=== PATIENT | female | born 1945 | race Caucasian/White ===

== ENCOUNTER → 2017-01-17 | Outpatient (CLI) | payer MEDICARE ==
[~2017-01-17] MED LIST: ASPIRIN E.C. 8181 MG PO; BENICAR 20MG TA20 MG PO; CALCIUM600 MG PO; CARDI-OMEGA1000 MG PO; FOLIC ACID1 MG PO; MULTIPLE VITAMI1 CAP PO; NEXIUM PO; VITAMIN C BUFF500 MG PO; VITAMIN D1000 IU PO; VYTORIN; ZEBETA5 MG PO; ZOFRAN 4MG T4 MG/TAB PO
== END ==
LOC: MC.RAD 10:38
DX: Z12.31 Encounter for screening mammogram for malignant neoplasm of breast (principal)